=== PATIENT | male | born 1965 | race Caucasian/White ===

== ENCOUNTER 2022-06-22 13:12 | Emergency (ER) | payer OTHER, SELFPAY ==
[2022-06-22] VITALS (14 sets, daily range): BP systolic 137–161; BP diastolic 84–93; PULSE 53–75; RESP 12–24; TEMP 36.2; O2SAT 94–100; BMI 24.0
--- NOTE | 2022-06-22 13:38 | W.ED.SOB ---
HPI - SOB/Dyspnea General: Chief Complaint: Upper Respiratory Infection Stated Complaint: possible collapsed lung, sent from [facility] Time Seen by Provider: 06/22/22 13:38 History of Present Illness: HPI Narrative: Mr. Sanchez is a 56-year-old gentleman with history of tobaccoism presenting to the emergency department for chest pain and shortness of breath. He reports being at his baseline health the past few days. He had onset of symptoms this morning of shortness of breath with discomfort in his mid chest rating to the back and up into the neck. Intensity symptoms is moderate to severe and worse with deep inspiration. He endorses some improvement with Toradol however was seen at clinic and referred to the emergency department for further evaluation due to concern for abnormal lung sounds. No other specific changes in health, exacerbating, or alleviating factors identified. Onset (ago): hour(s) Timing: constant Severity: moderate Exacerbating factors: movement and inspiration Relieving factors: medication Known history of: COPD (Likely though not formally diagnosed, history of smoking) Review of Systems General: Reports: 10 or more systems reviewed and unremarkable except in HPI and below PFSH ED PFSH: Medical History (Updated 06/30/22 @ 00:00 by SOTO Mccarthy) Tobacco abuse Surgical History (Updated 06/22/22 @ 13:47 by Doron Bryan MD) History of hand surgery Social History (Updated 06/22/22 @ 13:46 by Doron Bryan MD) Smoking and tobacco status: current every day smoker Physical Exam Const: COMMON NORMALS: alert GENERAL APPEARANCE: cooperative and well developed HENMT: COMMON NORMALS: normocephalic and atraumatic HEAD & SCALP: normocephalic and atraumatic Eye: COMMON NORMALS: conjunctivae normal CONJUNCTIVA: Yes conjunctivae normal SCLERA: sclerae normal Neck/C-Spine: COMMON NORMALS: supple GENERAL: Yes trachea midline Resp: EFFORT & INSPECTION: Yes able to speak in complete sentences AUSCULTATION: diminished lung sounds Cardio: COMMON NORMALS: regular rate and regular rhythm RATE: regular rate RHYTHM: regular rhythm GI: COMMON NORMALS: Soft to palpation PALPATION: Yes Soft to palpation and No Tenderness to palpation present (GI) Extremity: GENERAL: Yes normal exam except as noted and No edema Neuro: COMMON NORMALS: moves all extremities SENSORIUM/ORIENTATION: Yes alert and No Orientation impaired Psych: COMMON NORMALS: mental status grossly normal and Normal thought process present THOUGHT PROCESS: Normal thought process present Course Vital Signs: Vital signs: Vital Signs Temperature 97.1 F L 06/22/22 13:24 Pulse Rate 65 06/22/22 16:30 Respiratory Rate 19 H 06/22/22 16:30 Blood Pressure 161/93 06/22/22 16:30 Pulse Oximetry 100 06/22/22 16:30 Oxygen Delivery Me thod 06/22/22 14:14 MDM - SOB/Dyspnea Medical Decision Making 56-year-old gentleman presenting due to chest pain and concern over abnormal lung sounds at clinic. Exam as above. Bilaterally diminished lung sounds, no clinical evidence of pneumothorax on my exam. EKG notable for sinus bradycardia, normal axis and intervals, no STEMI. Similar on repeat. Labs with mild leukocytosis, normal hemoglobin and platelet count. No significant metabolic abnormalities. Negative initial and delta troponin. D-dimer is negative. Rapid viral testing is negative. Chest x-ray with no lobar consolidation or pneumothorax. Patient feels improved with RT treatment, analgesia, steroids. Most likely etiology of patient's symptoms is pleurisy or COPD exacerbation. Other possible etiologies discussed and patient is comfortable with outpatient management. He is low risk by heart score. The results of ED evaluation were discussed with the patient including prescriptions and/or symptomatic cares (if applicable) including appropriate and responsible use, followup plan, and return precautions. The patient verbalized understanding and felt safe for discharge. Medical Records I reviewed the patient's medical records. Lab Data I reviewed the patient's lab results. 06/22/22 14:03 06/22/22 14:03 Labs/Radiology: Radiology Impressions Chest X-Ray 06/22/22 13:43 IMPRESSION: No evidence for acute cardiopulmonary disease. Laboratory Results WBC 12.8 10^3/uL (4.0-10.0) H 06/22/22 14:03 RBC 5.06 10^6/uL (4.1-5.3) 06/22/22 14:03 Hgb 15.1 g/dL (11.7-16.6) 06/22/22 14:03 Hct 47.0 % (42.0-52.0) 06/22/22 14:03 MCV 92.9 fl (80-94) 06/22/22 14:03 MCH 29.8 pg (28.0-34.0) 06/22/22 14:03 MCHC 32.1 g/dL (30.0-36.0) 06/22/22 14:03 RDW 13.2 % (12.1-15.1) 06/22/22 14:03 Plt Count 227 10^3/cmm (130-400) 06/22/22 14:03 MPV 10.8 fL (7.4-10.4) H 06/22/22 14:03 Neut % (Auto) 72.5 % 06/22/22 14:03 Lymph % (Auto) 14.2 % 06/22/22 14:03 Alpine % (Auto) 9.9 % 06/22/22 14:03 Eos % (Auto) 2.7 % 06/22/22 14:03 Baso % (Auto) 0.4 % 06/22/22 14:03 Neut # (Auto) 9.26 10^3/uL (1.8-7.7) H 06/22/22 14:03 Lymph # (Auto) 1.8 10^3/uL (0.8-4.8) 06/22/22 14:03 Alpine # (Auto) 1.3 10^3/uL (0.2-0.9) H 06/22/22 14:03 Eos # (Auto) 0.4 10^3/uL (0.0-0.8) 06/22/22 14:03 Baso # (Auto) 0.1 10^3/uL (0.0-0.1) 06/22/22 14:03 Nucleated RBC % (auto) 0 % 06/22/22 14:03 Nucleated RBCs # 0.0 /100WBC 06/22/22 14:03 D-Dimer 0.43 ug/mIFEU (0-0.59) 06/22/22 14:02 Sodium 139 mmol/L (136-145) 06/22/22 14:03 Potassium 4.1 mmol/L (3.5-5.1) 06/22/22 14:03 Chloride 99 mmol/L (98-107) 06/22/22 14:03 Carbon Dioxide 30 mmol/L (22-29) H 06/22/22 14:03 Anion Gap 14.1 (5-19) 06/22/22 14:03 BUN 12 mg/dL (6-20) 06/22/22 14:03 Creatinine 0.8 mg/dL (0.7-1.2) 06/22/22 14:03 GFR Calculation 100.0 mL/min (90-130) 06/22/22 14:03 Glucose 101 mg/dL (65-115) 06/22/22 14:03 Calculated Osmolality 288 mOsm/kg (285-295) 06/22/22 14:03 Calcium 9.2 mg/dL (8.5-10.5) 06/22/22 14:03 Total Bilirubin 0.3 mg/dL (0.15-1.2) 06/22/22 14:03 AST 23 U/L (0-40) 06/22/22 14:03 ALT 36 U/L (0-41) 06/22/22 14:03 Alkaline Phosphatase 106 U/L (40-130) 06/22/22 14:03 Troponin T Baseline 6 ng/L (0-15) 06/22/22 14:03 Troponin T 120 Minute 6.00 ng/L (0-15) 06/22/22 15:50 Delta Troponin T 0 ABS# (0-10) 06/22/22 15:50 NT-Pro-B Natriuret Pep 83 pg/mL (0-125) 06/22/22 14:03 Total Protein 6.8 g/dL (6.6-8.7) 06/22/22 14:03 Albumin 4.2 g/dL (3.5-5.2) 06/22/22 14:03 Globulin 2.6 g/dL (1.3-4.6) 06/22/22 14:03 Lipase 21 U/L (13-60) 06/22/22 14:03 Influenza Type A Ag negative (Negative) 06/22/22 14:00 Influenza Type B Ag negative (Negative) 06/22/22 14:00 SARS-CoV-2 Ag (Rapid) negative (Negative) 06/22/22 14:00 Discharge Plan Discharge Patient Disposition: Home Clinical Impression: Chest pain, pleuritic, COPD (chronic obstructive pulmonary disease) Condition: Stable Prescriptions: New albuterol sulfate 90 mcg/actuation HFA aerosol inhaler 2 inh inhalation Q4H PRN (Reason: shortness of breath or wheezing) Qty: 8.5 0RF oxycodone 5 mg tablet 5 mg PO Q4H PRN (Reason: pain) Qty: 10 0RF No Action Tylenol-Codeine #3 300-30 mg Tablet 1 tab PO BID PRN (Reason: Pain) Discharge Orders: Discharge ED (Routine); Ordered 06/22/22 Ordered By: Doron Bryan Referrals: Blanca [facility] [Primary Care Provider] - Discharge Diet: Usual diet Discharge Activity: Increase activity as tolerated Patient Instructions: Chest Pain (ED), Pleurisy (ED), COPD (Chronic Obstructive Pulmonary Disease) (ED), Opioid Safety Activity Restrictions/Additional Instructions: Thank you for visiting the emergency department. You were seen and evaluated for chest pain. Given description of symptoms and ED evaluation the most likely cause of your symptoms is either a localized irritation of the lungs secondary to COPD or musculoskeletal pain. I will prescribe medications for exacerbation of underlying lung disease as well as oxycodone. Use oxycodone cautiously as it is an opioid. You may use [id number] medications such as acetaminophen and ibuprofen for pain however please do not exceed the daily recommended dosage as listed on the packaging and please keep in mind that many namebrand medications contain the same active ingredients. Please avoid these medications if previously instructed to do so by another physician due to other underlying medical condition. Please follow-up with your primary care provider. Return to the emergency department for worsening symptoms or anything else that you are concerned about and feel needs emergency department evaluation. Coding Level of Care Code ED Plate Slitter And Inspector for Arnav Barkley
--- NOTE | 2022-06-22 13:43 | XRR_ITS ---
PROCEDURE INFORMATION: Exam: XR Chest Exam date and time: 06/22/2022 1:50 PM Age: 56 years old Clinical indication: Shortness of breath; Additional info: TREASURE Romero TECHNIQUE: Imaging protocol: Radiologic exam of the chest. Views: 1 view. COMPARISON: No relevant prior studies available. FINDINGS: Lungs: Unremarkable. No consolidation. Pleural spaces: Unremarkable. No pleural effusion. No pneumothorax. Heart/Mediastinum: Heart is upper limits of normal in size. Vasculature: There is calcified plaque in the aortic knob. Bones/joints: Unremarkable. XR/XR chest 1V portable [id number] IMPRESSION: No evidence for acute cardiopulmonary disease.
--- NOTE | 2022-06-22 13:50 | ECG_ITS ---
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 Measurements Intervals [place] Rate: 53 P: 71 MS: 180 QRS: 71 QRSD: 102 T: 71 QT: 442 QTc: 416 Interpretive Statements SINUS BRADYCARDIA ST ELEVATION, PROBABLY EARLY REPOLARIZATION [ST ELEVATION WITH NORMALLY INFLECTED T-WAVE] No previous ECG available for comparison Electronically Signed On 06-22-2022 22:07:34 RAIL TRACK LAYER by Alisha Green M.D. [email or web address] va / crille hospitalAbine/store/OM/[id number]
--- NOTE | 2022-06-22 13:52 | PC.PHAR ---
pt states he takes no rx or otc medications-pt states he took 2 doses of his tylenol #3
[2022-06-22 14:09] LABS: Basophils # 0.1 10^3/uL (0.0-0.1); Basophils % 0.4 %; Eosinophils # 0.4 10^3/uL (0.0-0.8); Eosinophils % 2.7 %; Hemoglobin 15.1 g/dL (11.7-16.6); Lymphocytes # 1.8 10^3/uL (0.8-4.8); Lymphocytes % 14.2 %; Mean Corpuscular HGB Conc 32.1 g/dL (30.0-36.0); Mean Corpuscular Hemoglobin 29.8 pg (28.0-34.0); Mean Corpuscular Volume 92.9 fl (80-94); Mean Platelet Volume 10.8 fL (7.4-10.4); Monocytes # 1.3 10^3/uL (0.2-0.9); Monocytes % 9.9 %; Neutrophils # 9.26 10^3/uL (1.8-7.7); Neutrophils % 72.5 %; Nucleated Red Blood Cells % 0 %; Platelet Count 227 10^3/cmm (130-400); Red Blood Count 5.06 10^6/uL (4.1-5.3); Red Cell Distribution Width 13.2 % (12.1-15.1); White Blood Count 12.8 10^3/uL (4.0-10.0)
--- NOTE | 2022-06-22 14:10 | PC.NURSE ---
PT PLACED ON CONTINUOUS SPO2, NIBP, AND CM.
[2022-06-22] MEDS: ipratropium-albuterol 3 mL Neb INHALATION (14:14)
[2022-06-22 14:29] LABS: D Dimer 0.43 ug/mIFEU (0-0.59)
[2022-06-22 14:36] LABS: SARS Covid-2 Antigen negative (Negative)
[2022-06-22 14:37] LABS: Troponin(5th) Baseline 6 ng/L (0-15)
[2022-06-22 14:37] LABS: Influenza A by IFA negative (Negative); Influenza B by IFA negative (Negative)
[2022-06-22 14:42] LABS: Alanine Aminotransferase 36 U/L (0-41); Albumin Level 4.2 g/dL (3.5-5.2); Alkaline Phosphatase 106 U/L (40-130); Anion Gap 14.1 (5-19); Aspartate Amino Transferase 23 U/L (0-40); Blood Urea Nitrogen 12 mg/dL (6-20); Calcium 9.2 mg/dL (8.5-10.5); Carbon Dioxide 30 mmol/L (22-29); Chloride 99 mmol/L (98-107); Globulin 2.6 g/dL (1.3-4.6); Glucose 101 mg/dL (65-115); Lipase 21 U/L (13-60); NT Pro B Type Natriuretic Pept 83 pg/mL (0-125); Osmolality Calculated 288 mOsm/kg (285-295); Potassium 4.1 mmol/L (3.5-5.1); Sodium 139 mmol/L (136-145); Total Bilirubin 0.3 mg/dL (0.15-1.2); Total Protein 6.8 g/dL (6.6-8.7)
[2022-06-22] MEDS: morphine 4 mg/mL SDV 1 mL IVP (15:45)
--- NOTE | 2022-06-22 15:50 | ECG_ITS ---
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 Measurements Intervals [place] Rate: 55 P: 76 ID: [id number] QRS: 72 QRSD: 105 T: 74 QT: 434 QTc: 415 Interpretive Statements SINUS BRADYCARDIA EARLY REPOLARIZATION [ST ELEVATION WITH NORMALLY INFLECTED T-WAVE] MINIMAL ST DEPRESSION [0.025+ mV ST DEPRESSION] Compared to ECG 06/22/2022 13:50:50 No significant changes Electronically Signed On 06-22-2022 22:21:21 AUDIO VISUAL PRODUCTION SPECIALIST by Alisha Green M.D. [email or web address]/store/[id number]
[2022-06-22 17:45] LABS: Troponin 5 2HR Delta 0 ABS# (0-10)
== END 2022-06-22 16:45 | disposition home or self-care (01) ==
PROVIDERS: Emergency Provider Emergency Medicine; PCP Nurse Practitioner Family
DX: R09.1 Pleurisy (principal); J44.9 Chronic obstructive pulmonary disease, unspecified; Z20.822 Contact with and (suspected) exposure to COVID-19; F17.210 Nicotine dependence, cigarettes, uncomplicated
CPT/HCPCS: 36415; 71045; 80053; 83690; 83880; 84484; 85025; 85378; 87426; 87804; 93005; 94640; 96374; 96375; 99285; J2270; J2930

== ENCOUNTER 2024-01-01 10:17 | Outpatient (CLI) | payer OTHER, SELFPAY ==
--- NOTE | 2024-01-01 10:28 | XR_ITS ---
WS: [email or web address] Exam: XR cervical spine 3V* [id number] Date/Time of Exam: 01/01/2024 10:41 AM Reason For Exam: NECK PAIN No acute fracture or dislocation. Slight disc space narrowing at C5-6 with spondylosis at C5 and C6. Mild facet DJD. Normal paraspinal soft tissues. The odontoid is intact. Bilateral carotid artery calc ifications. XR/XR cervical spine 3V* [id number] IMPRESSION: 1. Mild degenerative changes. No fracture or malalignment.
--- NOTE | 2024-01-01 10:28 | XR_ITS ---
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 Flexion deformity of the fifth finger. 2 mm metallic soft tissue foreign body seen in the dorsum of the hand between the third and fourth metacarpals. 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 Moderate advanced degener ative change of the radiocarpal joint. Mild degenerative change at the first CMC joint and the greate r and lesser multangular. IMPRESSION1. Flexion deformity of the fifth finger. 2. 2 mm soft tissue foreign body in the dorsum of the hand. 3. 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
--- NOTE | 2024-01-01 10:28 | XR_ITS ---
WS: [email or web address] Exam: XR lumbar spine 2-3V* [id number] Date/Time of Exam: 01/01/2024 10:41 AM Reason For Exam: LOW BACK PAIN W/SCIATICA/PARESTHESIA OF FOOT No fracture or dislocation. Degenerative vacuum disc at L5-S1. Spondylosis. Remaining discs are prese rved. Posterior elements are intact. XR/XR lumbar spine 2-3V* [id number] IMPRESSION: 1. No fracture or malalignment. 2. Degenerative disc change at L5-S1. Spondylosis.
--- NOTE | 2024-01-01 10:28 | XR_ITS ---
WS: [email or web address] Exam: XR wrist LT 2V [id number] Date/Time of Exam: 01/01/2024 10:41 AM Reason For Exam: WRIST PAIN/HX OF WRIST FX W/PIN IN WRIST No acute fracture or dislocation. Degenerative narrowing of the radiocarpal joint. Proximal osteonecr osis of the scaphoid with nonunion fracture and screw fixation. Degenerative change of the greater an d lesser multangular. XR/XR wrist LT 2V [id number] IMPRESSION: 1. No acute fracture. 2. Moderate posttraumatic degenerative change of the radiocarpal joint. 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
== END 2024-01-01 10:18 | disposition home or self-care (01) ==
LOC: RAD 10:20
PROVIDERS: Absent Provider Nurse Practitioner Family; PCP Nurse Practitioner Family; Visit Provider Nurse Practitioner Family
DX: M54.40 Lumbago with sciatica, unspecified side (principal); S62.002A Unspecified fracture of navicular [scaphoid] bone of left wrist, initial encounter for closed fracture; M72.0 Palmar fascial fibromatosis [Dupuytren]; M19.032 Primary osteoarthritis, left wrist; M87.838 Other osteonecrosis of left carpus; M51.36 Other intervertebral disc degeneration, lumbar region; M51.37 Other intervertebral disc degeneration, lumbosacral region; M47.896 Other spondylosis, lumbar region; M60.242 Foreign body granuloma of soft tissue, not elsewhere classified, left hand; I65.23 Occlusion and stenosis of bilateral carotid arteries; M47.892 Other spondylosis, cervical region; X58.XXXA Exposure to other specified factors, initial encounter
CPT/HCPCS: 72040; 72100; 73100; 73120

== ENCOUNTER → 2024-01-26 15:08 | Outpatient (BNVA) | payer OTHER, SELFPAY | PROVIDERS: PCP Nurse Practitioner Family; Visit Provider Orthopaedic Surgery | DX: M54.50 Low back pain, unspecified (principal); M54.2 Cervicalgia | CPT/HCPCS: 72050; 72110 ==

== ENCOUNTER 2024-02-03 06:00 | Outpatient (RCR) | payer OTHER, SELFPAY | END 2024-03-03 23:59 | disposition home or self-care (01) | LOC: MPT 06:00 | PROVIDERS: Visit Provider Orthopaedic Surgery | DX: M54.9 Dorsalgia, unspecified (principal); M54.2 Cervicalgia; G89.29 Other chronic pain | CPT/HCPCS: 97110; 97162; G0283 ==

== ENCOUNTER 2024-03-04 06:00 | Outpatient (RCR) | payer OTHER, SELFPAY | END 2024-04-02 23:59 | disposition home or self-care (01) | LOC: MPT 06:00 | PROVIDERS: Visit Provider Orthopaedic Surgery | DX: M54.59 Other low back pain (principal); M54.2 Cervicalgia; G89.29 Other chronic pain | CPT/HCPCS: 97110; G0283 ==